=== PATIENT | female | born 1965 | race Caucasian/White ===

== ENCOUNTER 2020-12-28 07:38 | Inpatient (IN) | payer SELFPAY ==
[~2020-12-28] VITALS: Ht 154.9 cm; Wt 114.3 kg
[2020-12-28] MEDS ORDERED: ONDANSETRON HCL 4 MG/2 ML VIAL IV ONE (08:00)
[2020-12-28] MEDS ORDERED: SODIUM CHLORIDE 0.9% 1,000 ML IV ONE ×2 (08:00)
[2020-12-28] MEDS ORDERED: MORPHINE SULFATE 4 MG/ML SYR/VIAL IV ONE (08:00)
[2020-12-28] MEDS ORDERED: cefTRIAXone 1GM/50ML D5W 50 ML IV ONE (08:00)
[2020-12-28 08:17] LABS: Urine Bacteria NONE SEEN /hpf (None Seen); Urine Blood 3+ /uL (Negative); Urine Specific Gravity 1.016 (1.001-1.035); Urine WBC 2 /hpf (0 - 5)
[2020-12-28] MEDS ORDERED: IOHEXOL 350 MG/ML 100ML IJ ONE (08:36)
[2020-12-28 10:03] LABS: Basophils # (auto) 0 10 ^3/uL (0-0.2); Basophils % (auto) 0.6 % (0.0-2.0); Eosinophils # (auto) 0 10 ^3/uL (0-0.8); Eosinophils % (auto) 0.5 % (0.0-7.0); Hematocrit 41.7 % (36.0-46.0); Lymphocytes # (auto) 0.7 10 ^3/uL (0.4-5.4); Lymphocytes % (auto) 11.2 % (10.0-50.0); Mean Corpuscular Hemoglobin 29.2 pg (28.0-32.0); Mean Corpuscular Hgb Conc. 33.6 g/dL (32.0-36.0); Mean Corpuscular Volume 86.9 fL (80.0-100.0); Monocytes # (auto) 0.5 10 ^3/uL (0-1.3); Monocytes % (auto) 7.8 % (0.0-12.0); Neutrophils # (auto) 5.3 10 ^3/uL (1.6-8.6); Neutrophils % (auto) 79.9 % (37.0-80.0); Platelet Count (auto) 197 10^3/uL (140-450); Red Cell Distribution Width 13.4 % (11.8-14.3); White Blood Cell 6.7 10^3/uL (4.4-10.8)
[2020-12-28] MEDS ORDERED: TAMSULOSIN HYDROCHLORIDE 0.4 MG CAP PO ONE (11:00)
[2020-12-28] MEDS ORDERED: KETOROLAC TROMETH 30 MG/ML 1ML VIAL IV ONE (11:00)
[2020-12-28 11:12] LABS: Albumin 3.4 g/dL (3.4-5.0); Calcium 7.9 mg/dL (8.5-10.1); Potassium 4.9 mmol/L (3.5-5.1)
[2020-12-28 11:17] LABS: BUN/Creatinine Ratio 26.4; Bilirubin, Total 0.7 mg/dL (0.2-1.0); Total Protein 7.3 g/dL (6.4-8.2)
[2020-12-28] MEDS ORDERED: ACETAMINOPHEN 500 MG TAB PO PRN (11:30)
[2020-12-28] MEDS ORDERED: NITROGLYCERIN 0.4 MG SL TAB SL PRN (11:30)
[2020-12-28] MEDS ORDERED: MORPHINE SULF INJ 2 MG/ML SYRINGE 1ML IV PRN ×2 (11:30)
[2020-12-28] MEDS ORDERED: HYDROcodone-ACET 5/325MG TAB PO PRN (11:30)
[2020-12-28] MEDS ORDERED: ONDANSETRON HCL 4 MG/2 ML VIAL IV PRN (11:30)
[2020-12-28] MEDS: SODIUM CHLORIDE 0.9% 1,000 ML IV SCH ×2 (11:50→19:30)
[2020-12-28] MEDS ORDERED: MANNITOL FTV 25% 12.5 GM/50 ML 50 ML IV ONE (12:30)
[2020-12-28 16:48] VITALS: BP 132/74
[2020-12-28 17:20] VITALS: BP 129/74
[2020-12-28] MEDS ORDERED: LOPERAMIDE HCL 2 MG CAP PO PRN (17:45)
[2020-12-28] MEDS ORDERED: TAMSULOSIN HYDROCHLORIDE 0.4 MG CAP PO SCH (18:00)
[2020-12-28] MEDS ORDERED: DIPHENOXYLATE W/ATROPINE 2.5 MG TAB PO PRN (18:15)
[2020-12-28] MEDS: metroNIDAZOLE 500MG/100ML 100 ML IV SCH ×2 (18:49→21:33)
[2020-12-28 22:00] VITALS: BP 110/71
[2020-12-29] MEDS: SODIUM CHLORIDE 0.9% 1,000 ML IV SCH ×2 (03:30→11:30)
[2020-12-29 05:00] VITALS: BP 104/66
[2020-12-29] MEDS: metroNIDAZOLE 500MG/100ML 100 ML IV SCH ×2 (06:00→14:00)
[2020-12-29 06:20] LABS: Basophils # (auto) 0 10 ^3/uL (0-0.2); Basophils % (auto) 0.7 % (0.0-2.0); Eosinophils # (auto) 0.1 10 ^3/uL (0-0.8); Eosinophils % (auto) 2.7 % (0.0-7.0); Hematocrit 36.1 % (36.0-46.0); Hemoglobin 12.7 g/dL (12.2-16.2); Lymphocytes % (auto) 20.8 % (10.0-50.0); Mean Corpuscular Hemoglobin 30.7 pg (28.0-32.0); Mean Corpuscular Hgb Conc. 35.1 g/dL (32.0-36.0); Mean Corpuscular Volume 87.3 fL (80.0-100.0); Monocytes # (auto) 0.5 10 ^3/uL (0-1.3); Neutrophils # (auto) 3.1 10 ^3/uL (1.6-8.6); Neutrophils % (auto) 65.8 % (37.0-80.0); Nucleated Red Blood Cells % 0.1 %; Platelet Count (auto) 150 10^3/uL (140-450); Red Blood Cells 4.14 10^6/uL (4.0-5.20); Red Cell Distribution Width 13.2 % (11.8-14.3); White Blood Cell 4.8 10^3/uL (4.4-10.8)
[2020-12-29 06:33] LABS: Potassium 3.8 mmol/L (3.5-5.1)
[2020-12-29 06:38] LABS: BUN/Creatinine Ratio 15.4; Calcium 8.1 mg/dL (8.5-10.1)
[2020-12-29 09:00] VITALS: BP 112/63
[2020-12-29] MEDS ORDERED: cefTRIAXone 1GM/50ML D5W 50 ML IV SCH (09:00)
[2020-12-29] MEDS ORDERED: FAMOTIDINE 20 MG TAB PO SCH (10:00)
[2020-12-29 12:40] VITALS: BP 128/75
[2020-12-29] MEDS ORDERED: SODIUM CHLORIDE 0.9% 1,000 ML IV SCH (15:30)
[2020-12-29 17:00] VITALS: BP 127/78
== END 2020-12-29 17:30 | disposition left against medical advice (07) | DRG 694 ==
LOC: ER 07:38 → OVERFLOW 11:24 → WEST WING 15:06
PROVIDERS: ADMIT Nurse Practitioner Acute Care; ATTEND Internal Medicine
DX: N13.2 Hydronephrosis with renal and ureteral calculous obstruction (principal); Z68.42 Body mass index [BMI] 45.0-49.9, adult; K52.9 Noninfective gastroenteritis and colitis, unspecified; Z20.822 Contact with and (suspected) exposure to COVID-19; Z53.29 Procedure and treatment not carried out because of patient's decision for other reasons; E66.01 Morbid (severe) obesity due to excess calories; Z90.710 Acquired absence of both cervix and uterus; Z90.49 Acquired absence of other specified parts of digestive tract; Z98.51 Tubal ligation status; Z83.3 Family history of diabetes mellitus; Z82.49 Family history of ischemic heart disease and other diseases of the circulatory system; Z79.899 Other long term (current) drug therapy
CPT/HCPCS: 36415; 74176; 80048; 80053; 81001; 83605; 83690; 85025; 87040; 87045; 87426; 87427; 96361; 96365; 96375; G0378; J0696; J1885; J2405; J3490

== ENCOUNTER 2022-03-26 13:09 | Emergency (ER) | payer BC ==
[~2022-03-26] VITALS: Ht 165.1 cm; Wt 95.5 kg
[2022-03-26] MEDS ORDERED: LORazepam 2MG/ML-1ML VIAL IV ONE (15:30)
[2022-03-26] MEDS ORDERED: SODIUM CHLORIDE 0.9% 1,000 ML IV ONE (16:15)
[2022-03-26 17:02] LABS: Basophils # (auto) 0 10 ^3/uL (0-0.2); Basophils % (auto) 0.5 % (0.0-2.0); Eosinophils # (auto) 0.1 10 ^3/uL (0-0.8); Eosinophils % (auto) 1.3 % (0.0-7.0); Hematocrit 44.1 % (36.0-46.0); Hemoglobin 14.3 g/dL (12.2-16.2); Lymphocytes % (auto) 11.6 % (10.0-50.0); Mean Corpuscular Hgb Conc. 32.6 g/dL (32.0-36.0); Monocytes # (auto) 0.6 10 ^3/uL (0-1.3); Neutrophils % (auto) 79.6 % (37.0-80.0); Red Blood Cells 5.12 10^6/uL (4.0-5.20); Red Cell Distribution Width 13.6 % (11.8-14.3); White Blood Cell 8.8 10^3/uL (4.4-10.8)
[2022-03-26 17:38] LABS: Potassium 4.3 mmol/L (3.5-5.1)
[2022-03-26 17:41] LABS: Albumin 3.8 g/dL (3.4-5.0); BUN/Creatinine Ratio 22.2; Calcium 8.6 mg/dL (8.5-10.1); Magnesium 2.3 mg/dL (1.6-2.6)
[2022-03-26 17:44] LABS: Bilirubin, Total 0.6 mg/dL (0.2-1.0); Total Protein 6.8 g/dL (6.4-8.2)
[2022-03-26 18:29] VITALS: BP 126/80
== END 2022-03-26 18:30 | disposition home or self-care (01) ==
LOC: EDBD 13:09 → ER 13:17
DX: T17.408A Unspecified foreign body in trachea causing other injury, initial encounter (principal); J38.3 Other diseases of vocal cords; Z90.49 Acquired absence of other specified parts of digestive tract; Z90.710 Acquired absence of both cervix and uterus; Z98.51 Tubal ligation status; X58.XXXA Exposure to other specified factors, initial encounter; Y93.89 Activity, other specified; Y92.89 Other specified places as the place of occurrence of the external cause; Y99.8 Other external cause status
CPT/HCPCS: 36415; 71046; 71250; 80053; 83735; 85025; 93005; 96360; 96361; 99285; J2060; J7030